=== PATIENT | male | born 1950 | race Caucasian/White ===

== ENCOUNTER 2023-01-19 12:27 | Outpatient (CLI) | payer MEDICARE, OTHER ==
[2023-01-19] MEDS ORDERED: Magnevist 469MG/ML 20 ML VIAL ONE (12:54)
== END 2023-01-19 12:28 | disposition home or self-care (01) ==
LOC: TBSIIMAG 12:27
PROVIDERS: ATTEND Radiology Radiation Oncology
DX: C61 Malignant neoplasm of prostate (principal)
CPT/HCPCS: 72197; 82565